=== PATIENT | male | born 1940 | race Caucasian/White ===

== ENCOUNTER 2020-08-13 20:20 | Inpatient (IN) | payer OTHER ==
[~2020-08-13] VITALS: Ht 180.3 cm; Wt 68.9 kg
[~2020-08-13 20:20] MED LIST: CARB1TAB48 PO; HYDR-2761 PO; IBUP100O25 PO; LISI-334 PO; MIRT-36 PO; POTA10TA12 PO; QUET25TA PO; SIMV40TA18 PO; TAMS0.4C97 PO; TRAZ-118 PO
[2020-08-13] MEDS ORDERED: ATROPINE 1% OPHTH SOLUTION 5ML BOTTLE. SL PRN (22:30)
[2020-08-13] MEDS ORDERED: NALOXONE 0.4 MG/ML VIAL. IV PRN (22:30)
[2020-08-13] MEDS ORDERED: BISACODYL 10 MG SUPP.RECT. PR PRN (22:30)
[2020-08-13] MEDS: IV NORMAL SALINE 1000ML BAG 1,000 ML IV SCH (23:03)
[2020-08-13] MEDS: MORPHINE SULFATE 30 ML IV PRN (23:05)
[2020-08-14 07:10] VITALS: BP 161/80
--- NOTE | 2020-08-14 07:40 | PDOC1 ---
History and Physical Date of Admission Date of Admission DATE: 08/14/20 TIME: 07:40 Identification/Chief Complaint Chief Complaint COVID 19 pneumonia, hypoxic respiratory failure Source Source: Caregiver, Chart review History of Present Illness History of Present Illness Mr Almazan is a an 80 yo male SN[facility] resident with PMHx Parkinson's, HLD, HTN, dementia who was diagnosed with COVID-19 a week prior to admit. Brought into the hospital due to hypoxia, requiring 15 liters of oxygen. He does not have any complaints but does not speak much at all. Febrile to 100.5 F with chest radiograph revealing bilateral infiltrates. Labs significant for NA 153, K3.2, BUN 39, CR 1.1 Throughout his hospital stay he had significant desaturations on 15 L nasal cannula oxygen. Unable to swallow does not respond to redirection still on soft mitts. Discussed with his and 3 daughters today they would like to discuss inpatient hospice referral. I discussed case with pulmonology as well. Discharge to inpatient hospice care. Seen on morphine GTT due to severe respiratory distress and discomfort. Seen more comfortable today that yesterday, still with significant O2 desaturations. Past Medical History CENTRAL NERVOUS SYSTEM: Dementia Musculoskeletal: Osteoarthritis Family History Family History: Hypertension Social History Smoke: No ALCOHOL: none Drugs: None Current Medications Current Medications Current Medications Naloxone HCl (Narcan) 0.4 mg PRN Q2MIN PRN IV SEE INSTRUCTIONS; Start 08/13/20 at 22:30 Sodium Chloride 1,000 ml @ 25 mls/hr Q24H IV Last administered on 08/13/20at 23:03; Start 08/13/20 at 22:30 Morphine Sulfate 30 ml @ 0 mls/hr CONT PRN IV AIR HUNGER Last administered on 08/13/20at 23:05; Start 08/13/20 at 22:30 Lorazepam (Ativan Inj) 1 mg PRN Q4HRS PRN IVP ANXIETY / AGITATION Last administered on 08/13/20at 23:08; Start 08/13/20 at 22:30 Atropine Sulfate (Isopto Atropine) 2 drop PRN Q1HR PRN SL SECRETIONS; Start 08/13/20 at 22:30 Bisacodyl (Dulcolax Supp) 10 mg PRN DAILY PRN [place] CONSTIPATION; Start 08/13/20 at 22:30 Acetaminophen (Tylenol Supp) 650 mg PRN Q4HRS PRN FL MILD PAIN / TEMP > 100.5'F; Start 08/13/20 at 22:30 Active Scripts Active Reported Hydrocodone-Apap 5-325 (Hydrocodone Bit/Acetaminophen) 1 Tab Tablet 1 Tab PO Q8HRS Ibuprofen 100 Mg/5 Ml Oral.susp 400 Mg PO Q8HRS PRN Carbidopa-Levo 25-250 Mg Odt (Carbidopa/Levodopa) 1 Each Tab.rapdis 1 Each PO QID Quetiapine Fumarate 25 Mg Tablet 25 Mg PO BID Flomax (Tamsulosin Hcl) 0.4 Mg Cap.er.24h 0.4 Mg PO DAILY Remeron (Mirtazapine) 15 Mg Tablet 1 Tab PO QHS Simvastatin 40 Mg Tablet 40 Mg PO HS Trazodone Hcl 50 Mg Tablet 12.5 Mg PO TID PRN Lisinopril 20 Mg Tablet 20 Mg PO DAILY Klor-Con 10 (Potassium Chloride) 10 Meq Tablet.er 10 Meq PO DAILY Allergies Allergies: Coded Allergies: No Known Drug Allergies (Unverified , 08/10/20) PER [facility] DATED 10 AUG 2020 ROS Review of System Unable to obtain due to no verbal communication from patient Physical Exam General: Cooperative, mild distress HEENT: Atraumatic, PERRLA, EOMI, Mucous membr. moist/pink Lungs: Other (Coarse rhonchi bilaterally) Heart: S1S2, RRR, no thrills, no rubs Abdomen: Normal bowel sounds, Soft, No tenderness, No hepatosplenomegaly, No masses Rectal Exam: not examined Extremities: No clubbing, No cyanosis, No edema, Normal pulses, No tenderness/swelling Skin: No rashes, No breakdown, No significant lesion Neuro: Other (Moving all 4 limbs, coarse tremor in bilateral arms) Psych/Mental Status: Other (Non-verbal, confused) Vitals Vitals Vital Signs Date Time Temp Pulse Resp B/P (MAP) Pulse Ox O2 Delivery O2 Flow Rate FiO2 08/13/20 23:05 NonRebreather Mask 08/13/20 20:00 15.0 VTE Prophylaxis Ordered VTE Prophylaxis Devices: Contraindicated VTE Pharmacological Prophylaxi: No Assessment/Plan Assessment/Plan A/P:: Acute respiratory failure with hypoxia - due to COVID 19. O2, morphine GTT for symptoms of respiratory distress and pain not controlled on prn morphine Sepsis - due to COVID 19 pneumonia Hypernatremia - likely due to poor PO intake, hypovolemic, will hydrate, encouraged PO Hypokalemia - replaced Dementia - likely 2/2 parkinson. light during day, redirection Dyslipidemia Hypertension Parkinson's - unable to take his PO meds COVID-19 recently diagnosed - as above FEN - Regular diet PPX - q2hr turns DNR/DNI Dispo -inpatient hospice, critically ill, declining Justifications for Admission Other Justification covid 19 pneumonia with hypoxia, viral sepsis KATELYNN REDDY MD Aug 14, 2020 07:40
[2020-08-14] MEDS: ACETAMINOPHEN 650 MG SUPP.RECT. PR PRN ×2 (09:27→23:58)
[2020-08-14] MEDS: MORPHINE SULFATE 30 ML IV PRN ×2 (13:31→21:25)
[2020-08-14 19:00] VITALS: BP 176/92
[2020-08-14] MEDS: IV NORMAL SALINE 1000ML BAG 1,000 ML IV SCH (22:50)
[2020-08-15] MEDS: MORPHINE SULFATE 30 ML IV PRN (05:03)
[2020-08-15 07:00] VITALS: BP 63/34
--- NOTE | 2020-08-15 09:42 | PDOC ---
[employer] PROGRESS NOTE Date of Service DOS: DATE: 08/15/20 TIME: 09:40 Chief Complaint Chief Complaint A/P:: Acute respiratory failure with hypoxia - due to COVID 19. O2, morphine GTT for symptoms of respiratory distress and pain not controlled on prn morphine Septic shock - due to COVID 19 pneumonia Hypernatremia - likely due to poor PO intake, hypovolemic, will hydrate, encouraged PO Hypokalemia - replaced Dementia - likely 2/2 parkinson. light during day, redirection Dyslipidemia Hypertension Parkinson's - unable to take his PO meds COVID-19 recently diagnosed - as above FEN - Regular diet PPX - q2hr turns DNR/DNI Dispo -inpatient hospice, critically ill, declining, appears imminent today History of Present Illness History of Present Illness Mr Almazan is a an 80 yo male SNF resident with PMHx Parkinson's, HLD, HTN, dementia who was diagnosed with COVID-19 a week prior to admit. Brought into the hospital due to hypoxia, requiring 15 liters of oxygen. He does not have any complaints but does not speak much at all. Febrile to 100.5 F with chest radiograph revealing bilateral infiltrates. Labs significant for NA 153, K3.2, BUN 39, CR 1.1 Throughout his hospital stay he had significant desaturations on 15 L nasal cannula oxygen. Unable to swallow does not respond to redirection still on soft mitts. Discussed with his and 3 daughters today they would like to discuss inpatient hospice referral. I discussed case with pulmonology as well. Discharge to inpatient hospice care. Seen on morphine GTT due to severe respirat ory distress and discomfort. Seen more comfortable today that yesterday, still with significant O2 desaturations. Febrile to 102.7 F overnight tachycardic in the 115 this overnight as well. This improved with acetaminophen suppository and increase in morphine GTT. Blood pressure 64/34 patient appears comfortable there is mottling on his extremities. Vitals/I&O Vitals/I&O: Vital Signs Date Time Temp Pulse Resp B/P (MAP) Pulse Ox O2 Delivery O2 Flow Rate FiO2 08/15/20 05:36 96 NonRebreather Mask 10.0 08/14/20 19:00 102.7 116 22 176/92 (120) 102.7 I & O 08/14/20 08/14/20 08/15/20 15:00 23:00 07:00 Intake Total 0 ml 0 ml Balance 0 ml 0 ml Physical Exam General: Cooperative, No acute distress Lungs: Wheezing, Crackles Abdomen: Normal bowel sounds, Soft, No tenderness, No hepatosplenomegaly, No masses Extremities: No clubbing, No cyanosis, No edema, Normal pulses, No tenderness/swelling Skin: No breakdown, No significant lesion, Other (Mottling) Comment Review of Relevant I have reviewed the following items edis (where applicable) has been applied. Justifications for Admission Other Justification covid 19 pneumonia with hypoxia, viral sepsis KATELYNN REDDY MD Aug 15, 2020 09:42
--- NOTE | 2020-08-15 11:34 | PDOC3 ---
Discharge Summary Visit Information Date of Admission: Aug 13, 2020 Date of Discharge: Aug 15, 2020 Admitting Diagnosis: Acute hypoxic respiratory failure, COVID-19 Final Diagnosis Acute hypoxic respiratory failure, COVID-19 Brief Hospital Course Allergies Allergies Coded Allergies Type Severity Reaction Last Updated Verified No Known Drug Allergies 08/10/20 No Vital Signs Vital Signs Date Time Temp Pulse Resp B/P (MAP) Pulse Ox O2 Delivery O2 Flow Rate FiO2 08/15/20 08:00 Non-Rebreather 10.0 08/15/20 05:36 96 08/14/20 19:00 102.7 116 22 176/92 (120) 102.7 Brief Hospital Course Mr Almazan is a an 80 yo male SNF resident with PMHx Parkinson's, HLD, HTN, dementia who was diagnosed with COVID-19 a week prior to admit. Brought into the hospital due to hypoxia, requiring 15 liters of oxygen. He does not have any complaints but does not speak much at all. Febrile to 100.5 F with chest radiograph revealing bilateral infiltrates. Labs significant for NA 153, K3.2, BUN 39, CR 1.1 Throughout his hospital stay he had significant desaturations on 15 L nasal cannula oxygen. Unable to swallow does not respond to redirection still on soft mitts. Discussed with his and 3 daughters today they would like to discuss inpatient hospice referral. I discussed case with pulmonology as well. Discharge to inpatient hospice care. Seen on morphine GTT due to severe respiratory distress and discomfort. Seen more comfortable today that yesterday, still with significant O2 desaturations. Febrile to 102.7 F overnight tachycardic in the 115 this overnight as well. This improved with acetaminophen suppository and increase in morphine GTT. Blood pressure 64/34 patient appeared comfortable with mottling on his extremities. Out the day his blood pressure and heart rate continued to decline and 1040 was noted with no spontaneous respiratory or cardiac activity for time of . Family notified and were quickly bedside. Problem list: Acute respiratory failure with hypoxia - due to COVID 19 Septic shock - due to COVID 19 pneumonia Hypernatremia Hypokalemia Dementia - likely 2/2 parkinsons Dyslipidemia Hypertension Parkinson's COVID-19 recently diagnosed Greater than 30 minutes spent in care coordination on day of patient expiration. Discharge Information Condition at Discharge: / Disposition/Orders: No Active Prescriptions or Reported Meds Justicifation of Admission Dx: Justifications for Admission: Justification of Admission Dx: Yes KATELYNN REDDY MD Aug 15, 2020 11:34
--- NOTE | 2020-08-15 13:39 | NUR ---
Pt on Inpatient Hospice. Pt time of [address] Conner. and daughter at bedside. Pt cleaned up, bagged and in morgue. Spoke with Jacque Harrison.
== END 2020-08-15 10:40 | DRG 871 ==
LOC: 6 SOUTH 20:20 → UNDODISIN 20:24
PROVIDERS: ADMIT Internal Medicine; ATTEND Internal Medicine
DX: A41.89 Other specified sepsis (principal); J96.01 Acute respiratory failure with hypoxia; U07.1 COVID-19; J12.89 Other viral pneumonia; R65.21 Severe sepsis with septic shock; E87.0 Hyperosmolality and hypernatremia; Z66 Do not resuscitate; E87.6 Hypokalemia; G20 Parkinson's disease; F02.80 Dementia in other diseases classified elsewhere, unspecified severity, without behavioral disturbance, psychotic disturbance, mood disturbance, and anxiety; E78.5 Hyperlipidemia, unspecified; I10 Essential (primary) hypertension; B97.89 Other viral agents as the cause of diseases classified elsewhere; Z82.49 Family history of ischemic heart disease and other diseases of the circulatory system; M19.90 Unspecified osteoarthritis, unspecified site
CPT/HCPCS: J2060; J2270; J7030; G0378